=== PATIENT | male | born 1990 | race Caucasian/White ===

== ENCOUNTER → 2018-05-28 | Outpatient (CLI) | payer OTHER ==
--- NOTE | 2018-05-28 12:49 | REP ---
Chest two views HISTORY: Cough Comparison: None The lungs are clear. The heart is normal in size. The pulmonary vasculature is normal in appearance. The bony structure is intact. IMPRESSION: No acute disease. Electronically Signed by Homar Cruz MD 05/28/2018 12:41 P
== END ==
LOC: M WUC 12:26
PROVIDERS: ATTEND Physician Assistant
DX: R05 Cough (principal)